=== PATIENT | female | born 1940 | race Caucasian/White ===

== ENCOUNTER 2023-01-28 16:02 | Observation (INO) | payer MEDICARE, SELFPAY ==
[2023-01-28] VITALS (12 sets, daily range): BP systolic 98–130; BP diastolic 52–81; PULSE 105–112; RESP 16–26; TEMP 36.6–37.6; O2SAT 95–98; BMI 29.0; BMI 29.5; BMI 30.4
--- NOTE | 2023-01-28 16:04 | EKG12_ITS ---
Test Reason : NEURO Blood Pressure : / mmHG Vent. Rate : 108 BPM Atrial Rate : 108 BPM P-R Int : 178 ms QRS Dur : 106 ms QT Int : 334 ms P-R-T Axes : 049 -27 073 degrees QTc Int : 447 ms Sinus tachycardia Incomplete left bundle branch block Minimal voltage criteria for LVH, may be normal variant ( Alford product ) Borderline ECG Confirmed by NEPTALI SUAREZ, TRESSA ([id number]), video effects editor CASSIDY FRAUSTO ([id number]) on 01/30/2023 8:53:31 AM Referred By: IGNACIO Confirmed By:TRESSA GUNDERSON MD
--- NOTE | 2023-01-28 16:04 | CT_ITS ---
We are attempting to reach an attending provider to discuss findings. An addendum with communication details will be sent when the communication is complete. INDICATION: Neuro deficit, acute, stroke suspected EXAMINATION: CT BRAIN WITH CONTRAST TECHNIQUE: Noncontrast axial images were obtained of the brain. Subsequently, routine carotid CT angiogram protocol was performed without and with IV contrast. In addition, images were obtained of the [place]. NASCET criteria using the distal ICAs for comparison were used for evaluation of stenoses. 3D reconstructions were reviewed. A radiation dose optimization technique was used for this scan. IV Contrast dosage and agent: 100 cc [id number] COMPARISON: None. FINDINGS: --CT BRAIN: --CTA NECK: AORTIC ARCH AND BRANCHES: Normal anatomy, patent. RIGHT CCA: No occlusion, significant stenosis or dissection. RIGHT CAROTID BULB: Mild calcifications with no hemodynamically significant stenosis. RIGHT ICA: No occlusion, significant stenosis or dissection. LEFT CCA: No occlusion, significant stenosis or dissection. LEFT CAROTID BULB: Mild calcifications with no hemodynamically significant stenosis. LEFT ICA: No occlusion, significant stenosis or dissection. RIGHT VERTEBRAL ARTERY: No occlusion, significant stenosis or dissection. LEFT VERTEBRAL ARTERY: No occlusion, significant stenosis or dissection. NECK SOFT TISSUES: Unremarkable. --CTA HEAD: --Anterior circulation: ICAs: No significant stenosis at the intracranial/visualized segments. ACAs: No significant stenosis at the visualized segments. ACOM: Present. MCAs: No significant stenosis at the visualized segments. --Posterior circulation: PCOMs: Patent on the right. Nonvisualization on the left. ripsaw operator: No significant stenosis at the visualized segments. BASILAR ARTERY: No significant stenosis. VERTEBRAL ARTERIES: No significant stenosis at the intradural/visualized segments. No evidence of intracranial aneurysm or vascular malformation. CT/STROKE CTA Head AND Neck W/Con IMPRESSION: Negative CT Brain, CTA Carotid, and CTA Brain. Electronically Signed: Robert Loving DO at 16:46 EDT ,
--- NOTE | 2023-01-28 16:04 | CT_ITS ---
We are attempting to reach an attending provider to discuss findings. An addendum with communication details will be sent when the communication is complete. INDICATION: Neuro deficit, acute, stroke suspected EXAMINATION: CT BRAIN - CT Head Stroke Protocol W/O Contrast Injection TECHNIQUE: Multiple axial images were obtained of the head without intravenous contrast. A radiation dose optimization technique was used for this scan. IV Contrast dosage and agent: None. COMPARISON: FINDINGS: BRAIN PARENCHYMA: No intra- or extra-axial hemorrhage. No evidence of acute infarct. No intracranial mass or mass effect. Bilateral microangiopathic ischemic changes of the cerebral white matter. Posterior fossa structures are unremarkable. CSF SPACES: Appropriate for age. No hydrocephalus. Basal cisterns are patent. CALVARIUM, SKULL BASE, PARANASAL SINUSES AND MASTOID AIR CELLS: Clear. No discrete lytic or blastic abnormalities. ORBITS: Both globes, extraocular muscles, optic nerves and retrobulbar fat appear unremarkable. CT/STROKE Brain/Head without Cont IMPRESSION: Age-related changes. No acute intracranial pathology. Electronically Signed: Robert Loving DO at 16:24 EDT ,
--- NOTE | 2023-01-28 16:22 | ED.VIS.STROK ---
HPI History of Present Illness Chief Complaint: Stroke Alert Informant: patient, spouse/S.O. and family Narrative Narrative: History is from patient, and daughter. Evidently at around 5:00 yesterday afternoon patient just felt overall weak tired and a little nauseated. She laid down. She did not actually vomit. There have may have been some mild speech difficulties which shortened speech is in single words. Evidently this morning she got up. She did eat breakfast and did not have vomiting. She felt weaker in the afternoon. had been outside during the day. When he came back in she stated she just did not feel well. 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 He saw the bulletin that she made and it was appropriate. But the daughter had talked to her at some point in there and she seemed to have some mild expressive aphasia. She had a little bit more difficulty than normal getting her words out. She then seemed a little bit more confused this afternoon. She had told her that she was not going to drop the bulletin off at [employer]. He then found her in the tanker driver seat of the car. He then drove her to [employer] but she had forgotten to bring the [employer] bulletin. This combination just makes him concerned. She has never had any difficulty walking although she has been walking slower than normal the last day. There has not been any leaning to one side or focal weakness. No known fevers. She did have some mild soft bowel movement but no blood. Patient has mild dementia and is on donepezil. She also has high cholesterol. She evidently had a TIA with some similar symptoms a couple years ago. Her only anticoagulation is baby aspirin [facility] Medical History Dementia TIA (transient ischemic attack) Home Medications atorvastatin 20 mg tablet 20 mg PO DAILY 01/28/23 [History Last Taken Unknown] donepezil 5 mg tablet 20 mg PO DAILY 01/28/23 [History Last Taken Unknown] omeprazole 20 mg capsule,delayed release 20 mg PO DAILY 01/28/23 [History Last Taken Unknown] Allergy/AdvReac Type Severity Reaction Status Date / Time prednisone Allergy NEEDS Verified 01/28/23 16:32 FOLLOW-UP Social History Smoking Status: Never smoker ROS ROS ED Constitutional Constitutional ED: Denies chills, fever(s) or subjective Eyes Eyes: Denies change in vision or diplopia ENT ENT ED: Denies rhinorrhea or sore throat Cardiovascular Cardiovascular: Denies chest pain, palpitations or racing heartbeat Respiratory/Chest Respiratory/Chest: Denies cough Gastrointestinal Gastrointestinal: Reports diarrhea and nausea; Denies abdominal pain or vomiting Genitourinary Genitourinary ED: Reports other Details: She has had some dysuria recently but was treated with antibiotics a few weeks ago and it sounds like symptoms generally did resolve. Musculoskeletal Musculoskeletal: Denies myalgias Integumentary Denies Abrasions or rash Neurologic Neurologic: Reports other Details: See history of present illness. No focal weakness. ; Denies headache(s), paresthesias or weakness Endocrine Endocrinology: Denies polydipsia or polyuria Hematologic/Lymphatic Hematologic/Lymphatic: Denies easy bleeding or easy bruising Allergic/Immunologic Allergic/Immunologic ED: Denies urticaria EXAM Physical Exam Narrative Exam Narrative: CONSTITUTIONAL: Patient is nontoxic in appearance. The patient looks comfortable. Work of breathing looks normal. She is pleasant. She has a sense of humor HEENT: No notable trauma. Mucous membranes moist. No sinus tenderness. No indication of pain with swallowing. EYES: No conjunctival injection. No proptosis. Range of motion is normal. Lids close and open tightly and equally. NECK:No JVD. No stridor. CARDIOVASCULAR: Mildly tachycardic rate. Regular rhythm. No notable murmur. No JVD. phototypesetting equipment monitor appears to show sinus rhythm with mild tachycardia and occasional PACs. I do not see PVCs. RESPIRATORY: No respiratory distress. Breathing is unlabored. No wheezes. No rhonchi. No rales. No pain with a deep breath. No chest wall tenderness. Saturations are normal at 97% on room air showing no hypoxia. GASTROINTESTINAL: Not distended. Bowel sounds are normal. No tenderness. No guarding. No rebound. No palpable mass. No bruit is heard. GENITOURINARY: No tenderness over the bladder. No CVA tenderness. MUSCULOSKELETAL: Atraumatic. No peripheral edema. No cord. No tenderness along the deep venous system. No asymmetry. No distended veins. NEUROLOGICAL: Patient is alert and appropriate. She does have very mild word finding difficulty on exam. She does end up getting the correct words most of the time but it takes her longer than normal and the family states that this is a clear difference from her baseline. See NIH stroke scale also SKIN: No noted rashes. No diaphoresis. PSYCHIATRIC: Patient is calm. Mood is appropriate. Const Vital Signs: 01/28/23 16:08 01/28/23 16:20 01/28/23 16:20 Temperature Temperature Source Pulse Rate 106 H 109 H Respiratory Rate 19 H 26 H Blood Pressure 130/63 H 105/66 Blood Pressure Mean 85 79 Pulse Ox 97 98 Oxygen Delivery Method Room Air Room Air Room Air 01/28/23 16:33 01/28/23 17:15 01/28/23 17:45 Temperature 98.2 F Temperature Source Temporal Pulse Rate 112 H 109 H Respiratory Rate 16 22 H Blood Pressure 115/81 H 98/66 Blood Pressure Mean 92 76 Pulse Ox 98 95 Oxygen Delivery Method Room Air Room Air 01/28/23 18:15 Temperature Temperature Source Pulse Rate 112 H Respiratory Rate 20 H Blood Pressure 111/68 Blood Pressure Mean 82 Pulse Ox 96 Oxygen Delivery Method Room Air NIHSS NIHSS Initial: 1a Level of Consciousness: 0 1b LOC Questions (Score 2 if aphasic/stupor): 0 1c LOC Commands (Only score 1st attempt): 0 2 Best Gaze (If aphasic, use reflexive mvmts.): 0 3 Visual: 0 4 Facial Palsy: 0 5 Motor Arm Right (UN = amputation/fusion): 0 5 Motor Arm Left: 0 6 Motor Leg Right: 0 6 Motor Leg Left: 0 7 Limb ataxia (Only + if out of proportion): 0 8 Sensory (Aphasia/stupor=0 or 1, coma=2): 1 9 Best Language: 0 10 Dysarthria (mute, coma=2, intubated=UN): 0 11 Extinction and Inattention (only scored if +): 0 Total Score: 1 MDM MDM MDM Narrative Medical decision making narrative: My independent interpretation the patient's CT of the head without contrast shows no bleed, obvious mass there is mild atrophy. Final reading is negative for any acute stroke when I discussed the case with radiologist on the phone. CT angiogram of the head shows no acute process CBC shows normal white count. Minimal elevation of the hemoglobin that could be some mild dehydration. Electrolytes show no marked abnormalities. There is a slight high BUN to creatinine ratio. Glucose is up a little bit at 147 but these are not likely the cause of her symptoms. PT and PTT show no marked abnormalities Troponin is normal at 14. Stroke neurologist saw this patient by telemetry neurology. She does have some mild expressive aphasia with risk factors. She is only on aspirin. He recommended admission and further work-up. We are waiting urinalysis. This will be checked. It has been in the lab for a while more not getting results. We have been having this challenge today. But the patient does not have fevers urinary symptoms or an elevated white count. I did discuss the case with hospitalist Dr. Prince and the patient will be brought in for further evaluation. Lab Data Attestation: I reviewed the patient's lab results. Labs: Laboratory Results - last 24 hr 01/28/23 01/28/23 01/28/23 16:12 16:12 16:12 WBC 6.2 RBC 5.62 H Hgb 15.2 H Hct 46.9 MCV 83.5 MCH 27.0 MCHC 32.4 RDW Std Deviation 41.6 RDW Coeff of Majo 13.6 Plt Count 123 L MPV 10.2 Immature Gran % (Auto) 0.500 Neut % (Auto) 86.3 H Lymph % (Auto) 5.1 L Alexander % (Auto) 7.4 Eos % (Auto) 0.2 Baso % (Auto) 0.5 Absolute Neuts (auto) 5.4 Absolute Lymphs (auto) 0.32 L Nucleated RBC % 0 Differential Comment SCANNED PT 14.0 INR 1.1 APTT 29.8 Sodium 133 L Potassium 4.3 Chloride 100 Carbon Dioxide 27.0 Anion Gap 6 BUN 20 H Creatinine 0.90 Estim Creat Clear Calc 38.12 Est GFR (MDRD) Af Amer 78 Est GFR (MDRD) Non-Af 64 BUN/Creatinine Ratio 22.3 H Glucose 147 H Calcium 9.4 Troponin I High Sens 14 Urine Color Urine Clarity Urine pH Ur Specific Topmost Urine Protein Urine Glucose (UA) Urine Ketones Urine Occult Blood Urine Nitrite Urine Bilirubin Urine Urobilinogen Ur Leukocyte Esterase POC Glucose 01/28/23 01/28/23 16:25 17:05 WBC RBC Hgb Hct MCV MCH MCHC RDW Std Deviation RDW Coeff of Majo Plt Count MPV Immature Gran % (Auto) Neut % (Auto) Lymph % (Auto) Alexander % (Auto) Eos % (Auto) Baso % (Auto) Absolute Neuts (auto) Absolute Lymphs (auto) Nucleated RBC % Differential Comment PT INR APTT Sodium Potassium Chloride Carbon Dioxide Anion Gap BUN Creatinine Estim Creat Clear Calc Est GFR (MDRD) Af Amer Est GFR (MDRD) Non-Af BUN/Creatinine Ratio Glucose Calcium Troponin I High Sens Urine Color Yellow Urine Clarity Sl. Cloudy Urine pH 6.0 Ur Specific Topmost 1.015 Urine Protein 100 H Urine Glucose (UA) Normal Urine Ketones 5 H Urine Occult Blood Negative Urine Nitrite Negative Urine Bilirubin Negative Urine Urobilinogen Normal Ur Leukocyte Esterase 25 H POC Glucose 145 H Radiography Diagnostic Testing: Clinical Impression(s) from Imaging Studies Brain CT 01/28/23 16:04 IMPRESSION: Age-related changes. No acute intracranial pathology. Electronically Signed: Robert Loving DO at 16:24 EDT , ADDENDUM: 01/28/23 1635 IMPRESSION: Age-related changes. No acute intracranial pathology. N.B. : The above Results were Read Back by Robert Loving DO to Seven Martinez MD, and understanding confirmed on 01/28/2023 16:28:33 (ET). Electronically Signed: Robert Loving DO at 16:24 EDT , Head/Neck CTA 01/28/23 16:04 IMPRESSION: Negative CT Brain, CTA Carotid, and CTA Brain. Electronically Signed: Robert Loving DO at 16:46 EDT , ADDENDUM: 01/28/23 1659 IMPRESSION: Negative CT Brain, CTA Carotid, and CTA Brain. N.B. : The above Results were Read Back by Robert Loving DO to Seven Martinez MD, and understanding confirmed on 01/28/2023 16:52:49 (ET). Electronically Signed: Robert Loving DO at 16:46 EDT , Chest X-Ray 01/28/23 16:41 IMPRESSION: No radiographic evidence of acute cardiopulmonary disease. Electronically Signed: Robert Loving DO at 17:02 EDT , EKG Initial EKG: Comments: My independent interpretation of the patient's EKG done as part of stroke work-up shows sinus rhythm with slightly tachycardic rate at 108. No ectopy is seen on this EKG although PACs are seen on the monitor. No acute ST elevation or depression. Partial left bundle branch block and secondary changes. VA interval, QRS duration and QTc are normal. Management Discussion w/another healthcare provider: Hospitalist Discharge Plan Triage Chief Complaint: Stroke Alert ED Provider: Seven Martinez Dx/Rx/DC Orders Clinical Impression: Expressive aphasia, History of nausea, Generalized weakness Prescriptions: No Action atorvastatin 20 mg tablet 20 mg PO DAILY donepezil 5 mg tablet 20 mg PO DAILY Label Comments: TAKE 1 TABLET BY MOUTH EVERY DAY IN THE EVENING omeprazole 20 mg capsule,delayed release(DR/EC) 20 mg PO DAILY Primary Care Provider: Elvis Burdick Referrals: Elvis Burdick MD [Primary Care Provider] - Disposition Disposition: Acute Care Hospital [facility]
[2023-01-28 16:24] LABS: Absolute Lymphocyte Count 0.32 X10^3/uL (0.83-4.51); Absolute Neutrophil Count 5.4 X10^3/uL (2.0-7.7); Basophil# 0.03 X10^3/uL; Basophil% 0.5 % (0-1); Eosinophil# 0.01 X10^3/uL; Eosinophils% 0.2 % (0-5); Hematocrit 46.9 % (37-47); Hemoglobin 15.2 g/dL (12.0-15.0); Lymphocyte # 0.32 X10^3/ul (0.83-4.51); Lymphocyte % 5.1 % (19-41); Mean Corp Hgb Conc 32.4 g/dL (32-36); Mean Corpuscular Volume 83.5 fL (81-99); Mean Platelet Vol. 10.2 fl (6.2-12.0); Monocyte# 0.46 X10^3/uL; Monocyte% 7.4 % (0-10); NRBC Flagged by Analyzer 0 % (0-5); Neutrophil # 5.39 X10^3/uL (2.7-7.7); Neutrophil % 86.3 % (47-70); POSITIVE DIFFERENTIAL YES; Platelet Count 123 K/mm3 (150-450); RBC Distribution Width CV 13.6 % (11.6-14.6); RBC Distribution Width SD 41.6 fl (35.1-43.9); Red Blood Count 5.62 M/mm3 (4.2-5.4); White Blood Count 6.2 K/mm3 (4.4-11.0)
[2023-01-28 16:30] LABS: International Normalized Ratio 1.1
[2023-01-28 16:31] LABS: Partial Thromboplast Time 29.8 Seconds (24.1-36.2)
[2023-01-28 16:37] LABS: Differential Indicated SCAN CRITERIA MET
--- NOTE | 2023-01-28 16:41 | RAD_ITS ---
INDICATION: Neuro deficit, acute, stroke suspected EXAMINATION/TECHNIQUE: X-RAY - XR Chest 1 View COMPARISON: FINDINGS: LINES/DEVICES: Sternotomy wires over the mediastinum. LUNGS: No consolidation, edema or effusion. No pneumothorax. MEDIASTINUM AND CARDIOVASCULAR STRUCTURES: Cardiac silhouette not enlarged. Central airways and mediastinal contour are unremarkable. BONES AND SOFT TISSUES: Unremarkable. RAD/Chest 1 View IMPRESSION: No radiographic evidence of acute cardiopulmonary disease. Electronically Signed: Robert Loving DO at 17:02 EDT ,
[2023-01-28 16:42] LABS: Anion Gap 6 (5-15); BUN 20 mg/dL (7-18); BUN/Creat Ratio 22.3 RATIO (10-20); Calcium,Total 9.4 mg/dL (8.5-10.1); Chloride 100 mmol/L (98-107); EST Glomerular Filtration Rate 64 mL/min (>60); Est Glom Filt Rate - Afr Amer 78 mL/min (>60); Estimated Creatinine Clearance 38.12 ml/min; Glucose 147 mg/dL (74-106); Potassium 4.3 mmol/L (3.5-5.1); Sodium Level 133 mmol/L (136-145); Troponin-I HS 14 pg/mL (3.0-54.0)
[2023-01-28 17:06] LABS: Bedside Glucose 145 mg/dL (74-106)
[2023-01-28 17:09] LABS: Differential Comment SCANNED
[2023-01-28 17:11] LABS: Bacteria 0 SEEN /hpf (None Seen); Mucous, Urine 0 SEEN /hpf (<or=2+); Red Blood Cells-Urine 0 SEEN /hpf (0-5)
[2023-01-28 18:21] LABS: Color, Urine Yellow (Yellow); Glucose, Dipstick Normal (Normal); Ketone-Dipstick 5 mg/dl (Negative); Leukocyte Esterase-Dipstick 25 /ul (Negative); Nitrite-Dipstick Negative (Negative); Occult Blood-Urine Negative /ul (Negative); Protein-Dipstick 100 mg/dl (Negative); Specific Gravity, Urine 1.015 (1.002-1.030); Urine Bilirubin Dipstick Negative (Negative); Urine Clarity Sl. Cloudy (Clear); Urine Urobilinogen Normal (Normal)
--- NOTE | 2023-01-28 18:36 | PCM.HP.STD ---
HPI - General General Date of Admission: 01/28/23 Date of Service: 01/28/23 Chief Complaint: Mild language deficit/expressive aphasia since yesterday evening. HPI Narrative ALBERTA KAUR, is a 82 F Who was brought to ED accompanied by her and daughter for chief complaint of generalized weakness and difficulty in finding words/mild language deficit. Patient has mild early dementia and therefore history mainly taken from her daughter, and patient herself. She said she had difficulty in finding words, expressing herself but cannot understand other people talking to her. She denies dysarthria. Denies any focal one-sided weakness numbness tingling, paresthesia, blurry vision or loss of vision, dysphagia or new urinary or bowel complaint. No fever. Her symptoms started about about 4 to 5 PM yesterday. Patient was also feeling wobbly and slow when she walks. She was little more confused than normal. Mild nausea. No vomiting. In ED, stroke alert was called. Patient had TIA about 2 to 3 years ago. [facility] stroke neurologist was consulted and advised full stroke work-up. Patient on atorvastatin, donezepil and omeprazole at home. In ED, CT head and CTA head and neck did not show acute abnormality. Twelve-lead EKG shows sinus tachycardia 108 bpm, LAD, QTc 441 ms, incomplete LBBB with minimal voltage criteria for LVH. Patient is further admitted. [facility] Medical History Dementia TIA (transient ischemic attack) Home Medications atorvastatin 20 mg tablet 20 mg PO DAILY 01/28/23 [History Last Taken Unknown] donepezil 5 mg tablet 20 mg PO DAILY 01/28/23 [History Last Taken Unknown] omeprazole 20 mg capsule,delayed release 20 mg PO DAILY 01/28/23 [History Last Taken Unknown] Allergy/AdvReac Type Severity Reaction Status Date / Time prednisone Allergy NEEDS Verified 01/28/23 16:32 FOLLOW-UP Social History Smoking Status: Never smoker ROS ROS Narrative 14 system ROS taken from patient, her and daughter near the bedside. Denies prior history of coronary artery disease. 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 Denies history of smoking or chronic lung disease. Rest 14 ROS completed are negative except as mentioned in HPI. Vital Signs Vital Signs Vital Signs: 01/28/23 16:08 01/28/23 16:20 01/28/23 16:20 Temperature Temperature Source Pulse Rate 106 H 109 H Respiratory Rate 19 H 26 H Blood Pressure 130/63 H 105/66 Blood Pressure Mean 85 79 Pulse Ox 97 98 Oxygen Delivery Method Room Air Room Air Room Air 01/28/23 16:33 01/28/23 17:15 01/28/23 17:45 Temperature 98.2 F Temperature Source Temporal Pulse Rate 112 H 109 H Respiratory Rate 16 22 H Blood Pressure 115/81 H 98/66 Blood Pressure Mean 92 76 Pulse Ox 98 95 Oxygen Delivery Method Room Air Room Air 01/28/23 18:15 Temperature Temperature Source Pulse Rate 112 H Respiratory Rate 20 H Blood Pressure 111/68 Blood Pressure Mean 82 Pulse Ox 96 Oxygen Delivery Method Room Air Weight Weight: 166 lb 3.657 oz Body Mass Index (BMI) 30.4 Physical Exam Narrative Physical exam General: Alert, Oriented x3, Cooperative HEENT: Atraumatic, PERRLA, EOMI, Normocephalic Oral: Oral mucosa dry. No Gingival or Mucosal Lesions/ Ulcerations Neck: Supple, No JVD, Negative Carotid Bruits Lungs: Air entry diminished in bilateral lung bases. No crepitation/rhonchi Cardiovascular: Regular rate, Regular Rhythm, Normal S1, Normal S2, open heart surgery status post bioprosthetic AVR. Mild aortic, artificial valve click Abdomen: Bowel Sounds Present, Soft, Non Tender, Non-Distended : No dysuria. Chronic urinary incontinence. No renal angle tenderness. No suprapubic tenderness. Extremities: No edema, Capillary Refill Less than 3 Seconds Skin: No rashes, No breakdown Musculoskeletal: No Tenderness to Palpation of Joints or Extremities Neurological: Cranial nerves II-XII grossly intact, DTR 2+/4. NIH 1 for mild to moderate aphasia. No dysphagia or dysarthria. Psych/Mental Status: Flat affect. Mild early dementia. Results Lab / Micro Data Result Diagrams: 01/28/23 16:12 01/28/23 16:12 Labs: Laboratory Results - last 24 hr 01/28/23 16:12: WBC 6.2, RBC 5.62 H, Hgb 15.2 H, Hct 46.9, MCV 83.5, MCH 27.0, MCHC 32.4, RDW Std Deviation 41.6, RDW Coeff of Majo 13.6, Plt Count 123 L, MPV 10.2, Immature Gran % (Auto) 0.500, Neut % (Auto) 86.3 H, Lymph % (Auto) 5.1 L, [place] % (Auto) 7.4, Eos % (Auto) 0.2, Baso % (Auto) 0.5, Absolute Neuts (auto) 5.4, Absolute Lymphs (auto) 0.32 L, Nucleated RBC % 0, Differential Comment SCANNED 01/28/23 16:12: PT 14.0, INR 1.1, APTT 29.8 01/28/23 16:12: Sodium 133 L, Potassium 4.3, Chloride 100, Carbon Dioxide 27.0, Anion Gap 6, BUN 20 H, Creatinine 0.90, Estim Creat Clear Calc 38.12, Est GFR (MDRD) Af Amer 78, Est GFR (MDRD) Non-Af 64, BUN/Creatinine Ratio 22.3 H, Glucose 147 H, Calcium 9.4, Troponin I High Sens 14 01/28/23 16:25: POC Glucose 145 H 01/28/23 17:05: Urine Color Yellow, Urine Clarity Sl. Cloudy, Urine pH 6.0, Ur Specific [place] 1.015, Urine Protein 100 H, Urine Glucose (UA) Normal, Urine Ketones 5 H, Urine Occult Blood Negative, Urine Nitrite Negative, Urine Bilirubin Negative, Urine Urobilinogen Normal, Ur Leukocyte Esterase 25 H Radiology Impression Brain CT 01/28/23 16:04 IMPRESSION: Age-related changes. No acute intracranial pathology. Electronically Signed: Robert Loving DO at 16:24 EDT Reading Location ID and State: [facility] / [place] Tel [phone], Service support , ADDENDUM: 01/28/23 1635 IMPRESSION: Age-related changes. No acute intracranial pathology. N.B. : The above Results were Read Back by Robert Loving DO to Seven Martinez MD, and understanding confirmed on 01/28/2023 16:28:33 (ET). Electronically Signed: Robert Loving DO at 16:24 EDT , Head/Neck CTA 01/28/23 16:04 IMPRESSION: Negative CT Brain, CTA Carotid, and CTA Brain. Electronically Signed: Robert Loving DO at 16:46 EDT , ADDENDUM: 01/28/23 1659 IMPRESSION: Negative CT Brain, CTA Carotid, and CTA Brain. N.B. : The above Results were Read Back by Robert Loving DO to Seven Martinez MD, and understanding confirmed on 01/28/2023 16:52:49 (ET). Electronically Signed: Robert Loving DO at 16:46 EDT , Chest X-Ray 01/28/23 16:41 IMPRESSION: No radiographic evidence of acute cardiopulmonary disease. Electronically Signed: Robert Loving DO at 17:02 EDT , Assessment & Plan Assessment/Plan (1) Expressive aphasia: (2) Generalized weakness: PLAN: Plan This is a 82-year-old female is being admitted for stroke work-up. 1. Expressive aphasia possible TIA with history of TIA: Patient is being admitted in PCU. Patient is started on baby aspirin. Atorvastatin increased to 40 mg daily. BP is in permissive hypertension range. PT, OT, speech therapy/swallow evaluation and management, nursing NIH stroke scale, BP and glucose monitoring and control as per stroke protocol. TSH, A1c and fasting lipid profile tomorrow AM. MRI brain and 2D echo with bubble contrast study ordered 2. Mild GERD symptoms and dyslipidemia: On omeprazole 20 mg daily. Rest as mentioned above. 3. Mild early dementia: Patient on donezepil 20 mg daily. VTE prophylaxis moderate to high risk: On heparin 5000 units subcutaneous 3 times daily Living will/advanced directive/end of life care: Patient does have living will or advanced directive. Her is POA present in the room. After discussion of benefits/risks procedures involved with full code, DNR CC arrest and DNR CC, the patient, her daughter and opted for full code. Patient does want artificial life support including intubation, tube feed, ventilator and/chest compression, central venous catheter, vasopressor and DC shock if needed. Total time spent in [id number] encounter in discussion of advanced directive 17 minutes. Laboratory Results 01/28/23 16:12: WBC 6.2, RBC 5.62 H, Hgb 15.2 H, Hct 46.9, MCV 83.5, MCH 27.0, MCHC 32.4, RDW Std Deviation 41.6, RDW Coeff of Majo 13.6, Plt Count 123 L, MPV 10.2, Immature Gran % (Auto) 0.500, Neut % (Auto) 86.3 H, Lymph % (Auto) 5.1 L, [place] % (Auto) 7.4, Eos % (Auto) 0.2, Baso % (Auto) 0.5, Absolute Neuts (auto) 5.4, Absolute Lymphs (auto) 0.32 L, Nucleated RBC % 0, Differential Comment SCANNED 01/28/23 16:12: PT 14.0, INR 1.1, APTT 29.8 01/28/23 16:12: Sodium 133 L, Potassium 4.3, Chloride 100, Carbon Dioxide 27.0, Anion Gap 6, BUN 20 H, Creatinine 0.90, Estim Creat Clear Calc 38.12, Est GFR (MDRD) Af Amer 78, Est GFR (MDRD) Non-Af 64, BUN/Creatinine Ratio 22.3 H, Glucose 147 H, Calcium 9.4, Troponin I High Sens 14 01/28/23 16:25: POC Glucose 145 H 01/28/23 17:05: Urine Color Yellow, Urine Clarity Sl. Cloudy, Urine pH 6.0, Ur Specific [place] 1.015, Urine Protein 100 H, Urine Glucose (UA) Normal, Urine Ketones 5 H, Urine Occult Blood Negative, Urine Nitrite Negative, Urine Bilirubin Negative, Urine Urobilinogen Normal, Ur Leukocyte Esterase 25 H, Urine RBC Pending, Urine WBC Pending, Ur Squamous Epith Cells Pending, Urine Bacteria Pending, Urine Mucus Pending Charges/Coding Visit Charges Inpatient E&M: 03471 Init Hosp L3 Procedures Hospitalists Procedures: 30827 Advncd Care Plan 30 Min
[2023-01-28 19:08] LABS: Squamous Epithelial Cells - UA 0-5 SEEN /hpf (5-10); White Blood Cells 0-5 SEEN /hpf (0-5)
--- NOTE | 2023-01-28 23:18 | ECHOD_ITS ---
Reason For Study: TIA/CVA Procedure This was a 2D Doppler, Color Flow transthoracic echocardiogram. Exam performed portable in patient room. Left Ventricle Normal LV size. Left ventricular systolic function is normal. The estimated ejection fraction is 60 %. Stage 1 diastolic dysfunction. No regional wall motion abnormalities noted. Right Ventricle Normal RV size. Normal systolic function. Atria Normal left atrium. Normal right atrium. Bubble contrast study negative for right to left interatrial shunt. Mitral Valve There is moderate mitral annular calcification. Aortic Valve Peak aortic valve gradient 35 mmHg. Mean aortic valve gradient 21 mmHg. Bioprosthetic aortic valve. Great Vessels Normal aortic root. The pulmonary artery is normal size. Normal inferior vena cava. Pericardium/Pleural No pericardial effusion. Medication Performed a rapid injection of agitated mix of 9 cc saline and 1cc air to assess for atrial septal defect. MMode/2D Measurements & Calculations LVIDd: 3.7 cm IVSd: 1.5 cm LVOT diam: 2.0 cm LVIDs: 1.9 cm LVPWd: 0.89 cm LVOT area: 3.2 cm2 FS: 49.1 % Ao root diam: 3.5 cm LAV(MOD-bp): 40.7 ml LVAd ap4: 24.4 cm2 LAV(MOD-bp) Indexed: 23.5 ml/m2 LVLd ap4: 8.0 cm LAV(MOD-sp2): 43.1 ml EDV(MOD-sp4): 62.7 ml LAV(MOD-sp4): 38.8 ml EDV(sp4-el): 63.4 ml LVAs ap4: 15.0 cm2 LVLs ap4: 6.8 cm ESV(MOD-sp4): 30.6 ml ESV(sp4-el): 27.8 ml EF(MOD-sp4): 51.3 % EF(sp4-el): 56.2 % SV(MOD-sp4): 32.1 ml SV(MOD-sp2): 29.5 ml LVAd ap2: 22.5 cm2 LVLd ap2: 8.1 cm EDV(MOD-sp2): 53.1 ml EDV(sp2-el): 52.9 ml LVAs ap2: 13.3 cm2 LVLs ap2: 7.0 cm ESV(MOD-sp2): 23.6 ml ESV(sp2-el): 21.5 ml EF(MOD-sp2): 55.6 % SV(sp4-el): 35.6 ml LA A4 area: 15.7 cm2 LA dimension(2D): 3.9 cm RA A4 area: 15.3 cm2 Doppler Measurements & Calculations MV E max olive: 86.1 cm/sec MV V2 max: 154.4 cm/sec MV P1/2t max olive: 108.0 cm/sec MV A max olive: 165.8 cm/sec MV max P.5 mmHg MV P1/2t: 94.2 msec MV E/A: 0.52 MV V2 mean: 94.9 cm/sec MV dec slope: 336.0 cm/sec2 MV mean P.9 mmHg MV V2 VTI: 33.4 cm MVA(P1/2t): 2.3 cm2 MVA(VTI): 3.1 cm2 Ao V2 max: 293.9 cm/sec LV V1 max: 168.6 cm/sec SV(LVOT): 104.3 ml Ao max P.8 mmHg LV V1 max P.4 mmHg Ao V2 mean: 218.3 cm/sec LV V1 mean P.9 mmHg Ao mean P.1 mmHg LV V1 mean: 123.2 cm/sec Ao V2 VTI: 56.7 cm LV V1 VTI: 32.5 cm AV (velocity ratio): 0.57 SUSAN(I,D): 1.8 cm2 SUSAN(V,D): 1.8 cm2 PA V2 max: 78.6 cm/sec ECHO/Echo Complete Interpretation Summary Normal LV size. Left ventricular systolic function is normal. The estimated ejection fraction is 60 %. Stage 1 diastolic dysfunction. Bioprosthetic aortic valve. Mean aortic valve gradient 21 mmHg. Bubble contrast study negative for right to left interatrial shunt. Ordering Physician: Bhaskar Prince Referring Physician: Elvis Burdick Performed By: Cece Kay RCS
--- NOTE | 2023-01-28 23:18 | MRI_ITS ---
STUDY: MR Brain W/O Contrast 01/29/2023 4:29 PM REASON FOR EXAM: Female, 82 years old. acute stroke COMPARISON: CT head done yesterday TECHNIQUE: Standardized multiplanar fat and water weighted pulse sequences were obtained. MR Brain W/O Contrast FINDINGS: There is mild cerebral atrophy with widening of the extra-axial spaces and ventricular dilatation. There are a limited number of small white matter hyperintensities, distributed throughout the deep white matter tracts of the cerebral hemispheres, consistent with mild chronic white matter ischemic changes. There is mild prominence of the vermian folia, consistent with atrophy of the vermis. The cerebellar hemispheres are normal. Normal bilateral basal ganglia. Normal thalami. There is no extra-axial fluid accumulation. Normal flow voids within the major intracranial circulation suggesting patency by spin echo criteria. Normal sella turcica, pituitary gland, infundibular stalk, optic chiasm and hypothalamus. Normal tectal plate and pineal gland. Normal midbrain, anant and medulla. Normal basal cisterns. Normal bilateral temporal bones. Normal bilateral internal auditory canals. No demonstrated orbital abnormality, within the constraints of a routine brain study. Normal visualized paranasal sinuses. Normal calvarium and skull base. Normal visualized soft tissue structures. Normal visualized upper cervical spine. Aspect score 10 MRI/Brain without Contrast IMPRESSION: (NOT LISTED IN ORDER OF SIGNIFICANCE) There are no acute intracranial findings. Electronically Signed: Tree Hamilton MD at 16:31 EDT ,
[2023-01-29] VITALS (9 sets, daily range): BP systolic 105–130; BP diastolic 54–76; PULSE 95–115; RESP 16–18; TEMP 35.9–36.7; O2SAT 94–99; BMI 29.0
[2023-01-29] MEDS: Atorvastatin Calcium 40 MG Tablet PO ×2 (00:12→21:46)
[2023-01-29] MEDS: 0.9% Normal Saline 1,000 ML 75 ML IV (00:12)
[2023-01-29] MEDS: Pantoprazole Sodium 20 MG Tablet PO ×2 (00:12→09:51)
[2023-01-29] MEDS: Heparin Injection (Vial) 5,000 UNIT/ML VIAL 5000 UNIT SC ×4 (00:13→21:46)
[2023-01-29] MEDS: Aspirin 81 MG TAB.CHEW PO ×2 (00:13→08:12)
[2023-01-29 07:16] LABS: Absolute Neutrophil Count 5.6 X10^3/uL (2.0-7.7); Basophil# 0.02 X10^3/uL; Basophil% 0.3 % (0-1); Hematocrit 44.2 % (37-47); Lymphocyte % 4.7 % (19-41); Mean Corp Hgb Conc 31.7 g/dL (32-36); Mean Corpuscular Hgb 26.6 pg (27.0-32.0); Mean Platelet Vol. 10.6 fl (6.2-12.0); Monocyte# 0.38 X10^3/uL; NRBC Flagged by Analyzer 0 % (0-5); Neutrophil % 88.4 % (47-70); POSITIVE DIFFERENTIAL YES; Platelet Count 110 K/mm3 (150-450); RBC Distribution Width CV 13.6 % (11.6-14.6); RBC Distribution Width SD 42.1 fl (35.1-43.9); Red Blood Count 5.26 M/mm3 (4.2-5.4); White Blood Count 6.3 K/mm3 (4.4-11.0)
[2023-01-29 07:18] LABS: Differential Indicated SCAN CRITERIA MET
[2023-01-29 08:15] LABS: Anion Gap 7 (5-15); BUN 21 mg/dL (7-18); BUN/Creat Ratio 25.2 RATIO (10-20); Calcium,Total 8.6 mg/dL (8.5-10.1); Chloride 102 mmol/L (98-107); Cholesterol 118 mg/dL (200); Creatinine, Serum 0.83 mg/dL (0.55-1.02); EST Glomerular Filtration Rate 70 mL/min (>60); Est Glom Filt Rate - Afr Amer 84 mL/min (>60); Estimated Creatinine Clearance 41.33 ml/min; Glucose 143 mg/dL (74-106); High Density Lipoprotein 41 mg/dL; Sodium Level 135 mmol/L (136-145); Thyroid Stim Hormone (TSH) 1.16 uIU/mL (0.358-3.74); Triglycerides 110 mg/dL; Very Low Density Lipoprotein 22 mg/dL (5-40)
[2023-01-29 08:51] LABS: Hemoglobin A1c 6.3 % (3.8-5.6)
[2023-01-29] MEDS: Donepezil HCl 10 MG Tablet 20 MG PO (09:51)
[2023-01-29] MEDS: proCHLORPERazine 10 MG/2 ML Vial 5 MG IV (11:56)
[2023-01-29 12:10] LABS: Bedside Glucose 168 mg/dL (74-106)
[2023-01-29 13:10] LABS: Bedside Glucose 180 mg/dL (74-106)
--- NOTE | 2023-01-29 14:44 | PCM.PN.HOSP ---
Reason for Visit Reason for Visit: Diagnoses Aphasia (01/28/23) Weakness (01/28/23) Subjective Subjective Beginning to feel better overall, balance problems are improving, family members at bedside and patient family member still feels she is not talking quite the same as baseline and unable to speak as quickly though improved from previously not presently slurring Objective Data Objective Data Vital Signs: Vital Signs Temp Pulse Resp BP Pulse Ox O2 Del Method 97.6 F L 102 H 18 125/58 H 94 Room Air 01/29/23 12:00 01/29/23 12:00 01/29/23 12:00 01/29/23 12:00 01/29/23 12:00 01/29/23 12:00 Oxygen Delivery Method Room Air Weight: 72.121 kg Body Mass Index (BMI) 29.0 Intake & Output: Intake and Output for Last 24 Hours 01/27/23 01/28/23 01/29/23 23:59 23:59 23:59 Intake Total 60 / 60 Output Total 0 / 0 Balance 60 / 60 Lab / Micro Data Result Diagrams: 01/29/23 06:30 01/29/23 06:30 Labs: Laboratory Results - last 24 hr 01/28/23 16:12: WBC 6.2, RBC 5.62 H, Hgb 15.2 H, Hct 46.9, MCV 83.5, MCH 27.0, MCHC 32.4, RDW Std Deviation 41.6, RDW Coeff of Majo 13.6, Plt Count 123 L, MPV 10.2, Immature Gran % (Auto) 0.500, Neut % (Auto) 86.3 H, Lymph % (Auto) 5.1 L, [place] % (Auto) 7.4, Eos % (Auto) 0.2, Baso % (Auto) 0.5, Absolute Neuts (auto) 5.4, Absolute Lymphs (auto) 0.32 L, Nucleated RBC % 0, Differential Comment SCANNED 01/28/23 16:12: PT 14.0, INR 1.1, APTT 29.8 01/28/23 16:12: Sodium 133 L, Potassium 4.3, Chloride 100, Carbon Dioxide 27.0, Anion Gap 6, BUN 20 H, Creatinine 0.90, Estim Creat Clear Calc 38.12, Est GFR (MDRD) Af Amer 78, Est GFR (MDRD) Non-Af 64, BUN/Creatinine Ratio 22.3 H, Glucose 147 H, Calcium 9.4, Troponin I High Sens 14 01/28/23 16:12: Magnesium 2.0 01/28/23 16:25: POC Glucose 145 H 01/28/23 17:05: Urine Color Yellow, Urine Clarity Sl. Cloudy, Urine pH 6.0, Ur Specific [place] 1.015, Urine Protein 100 H, Urine Glucose (UA) Normal, Urine Ketones 5 H, Urine Occult Blood Negative, Urine Nitrite Negative, Urine Bilirubin Negative, Urine Urobilinogen Normal, Ur Leukocyte Esterase 25 H, Urine RBC 0 SEEN, Urine WBC 0-5 SEEN, Ur Squamous Epith Cells 0-5 SEEN, Urine Bacteria 0 SEEN, Urine Mucus 0 SEEN 01/29/23 06:30: Sodium 135 L, Potassium 4.0, Chloride 102, Carbon Dioxide 26.0, Anion Gap 7, BUN 21 H, Creatinine 0.83, Estim Creat Clear Calc 41.33, Est GFR (MDRD) Af Amer 84, Est GFR (MDRD) Non-Af 70, BUN/Creatinine Ratio 25.2 H, Glucose 143 H, Calcium 8.6, Triglycerides 110, Cholesterol 118, LDL Cholesterol 55, VLDL Cholesterol 22, HDL Cholesterol 41, TSH 1.16 01/29/23 06:30: WBC 6.3, RBC 5.26, Hgb 14.0, Hct 44.2, MCV 84.0, MCH 26.6 L, MCHC 31.7 L, RDW Std Deviation 42.1, RDW Coeff of Majo 13.6, Plt Count 110 L, MPV 10.6, Immature Gran % (Auto) 0.600, Neut % (Auto) 88.4 H, Lymph % (Auto) 4.7 L, [place] % (Auto) 6.0, Eos % (Auto) 0.0, Baso % (Auto) 0.3, Absolute Neuts (auto) 5.6, Absolute Lymphs (auto) 0.30 L, Nucleated RBC % 0 01/29/23 06:30: Hemoglobin A1c 6.3 H 01/29/23 08:17: POC Glucose 168 H 01/29/23 12:49: POC Glucose 180 H Micro: Microbiology 01/28/23 17:05 Urine, Clean Catch Urine Culture - Preliminary Mixed Gram Positive Organisms Radiography Diagnostic Testing: Radiology Impression Brain CT 01/28/23 16:04 IMPRESSION: Age-related changes. No acute intracranial pathology. Electronically Signed: Robert Loving DO at 16:24 EDT , ADDENDUM: 01/28/23 1635 IMPRESSION: Age-related changes. No acute intracranial pathology. N.B. : The above Results were Read Back by Robert Loving DO to Seven Martinez MD, and understanding confirmed on 01/28/2023 16:28:33 (ET). Electronically Signed: Robert Loving DO at 16:24 EDT , Head/Neck CTA 01/28/23 16:04 IMPRESSION: Negative CT Brain, CTA Carotid, and CTA Brain. Electronically Signed: Robert Loving DO at 16:46 EDT , ADDENDUM: 01/28/23 1659 IMPRESSION: Negative CT Brain, CTA Carotid, and CTA Brain. N.B. : The above Results were Read Back by Robert Loving DO to Seven Martinez MD, and understanding confirmed on 01/28/2023 16:52:49 (ET). Electronically Signed: Robert Loving DO at 16:46 EDT , Chest X-Ray 01/28/23 16:41 IMPRESSION: No radiographic evidence of acute cardiopulmonary disease. Electronically Signed: Robert oLving DO at 17:02 EDT , Physical Exam Narrative General: Alert, oriented, no apparent distress HEENT: Atraumatic, normocephalic Eyes: Anicteric, normal conjunctiva, extraocular movements intact, pupils equal Neck: Supple Respiratory: Clear to auscultation bilaterally, normal respiratory effort Cardiovascular: Regular rate and rhythm GI: Soft, nontender, nondistended Extremities: No edema Musculoskeletal: Strength 5 out of 5 in right upper extremity, 5 out of 5 left upper extremity, 5 out of 5 right lower extremity, 5 out of 5 left lower extremity Neuro: No overt focal neurological deficits, cranial nerves II through XII intact, Skin: No rashes appreciated Psych: Cooperative Assessment & Plan Assessment/Plan (1) Expressive aphasia: (2) Generalized weakness: PLAN: Plan This is a 82-year-old female is being admitted for stroke work-up. #Expressive aphasia and vertigo -On aspirin, statin -CT head no acute changes, CTA no critical stenosis -MRI no acute stroke -Official echo pending -Balance/dizziness improved this a.m. per patient, not slurring speech but she and family do not feel she is yet back to baseline, with negative MRI unclear etiology, will consult neurology -On telemetry noted sinus arrhythmia but no overt A-fib # Mild GERD symptoms and dyslipidemia: Continue daily PPI #Mild early dementia: Patient listed is on omeprazole 20 mg daily however that is over the maximum recommended dose,. She is feeling 10 mg daily not 20, will decrease this VTE prophylaxis moderate to high risk: On heparin 5000 units subcutaneous 3 times daily Charges/Coding Visit Charges Inpatient E&M: 74658 Subs Hosp L2
--- NOTE | 2023-01-29 15:58 | CASEMGMT ---
TONY CM in to complete HERNANDEZ form with patient. RN TARA explained HERNANDEZ form to patient, patient voiced understanding. Patient signed HERNANDEZ form and filed in chart. Patient provided with copy of signed HERNANDEZ Form. Patient had no further questions or concerns at this time.
[2023-01-29] MEDS: Metoprolol Tartrate 25 MG Tablet 12.5 MG PO (21:46)
[2023-01-30] VITALS (9 sets, daily range): BP systolic 103–123; BP diastolic 64–68; PULSE 88–110; RESP 16–18; TEMP 36.5–38.1; O2SAT 94–98; BMI 29.0
[2023-01-30 05:35] LABS: Absolute Lymphocyte Count 0.32 X10^3/uL (0.83-4.51); Absolute Neutrophil Count 5.2 X10^3/uL (2.0-7.7); Basophil# 0.02 X10^3/uL; Basophil% 0.3 % (0-1); Hematocrit 41.1 % (37-47); Hemoglobin 13.3 g/dL (12.0-15.0); Lymphocyte # 0.32 X10^3/ul (0.83-4.51); Lymphocyte % 5.5 % (19-41); Mean Corp Hgb Conc 32.4 g/dL (32-36); Mean Corpuscular Hgb 26.7 pg (27.0-32.0); Mean Corpuscular Volume 82.4 fL (81-99); Mean Platelet Vol. 10.7 fl (6.2-12.0); Monocyte# 0.35 X10^3/uL; NRBC Flagged by Analyzer 0 % (0-5); Neutrophil # 5.15 X10^3/uL (2.7-7.7); Neutrophil % 87.9 % (47-70); POSITIVE DIFFERENTIAL YES; Platelet Count 117 K/mm3 (150-450); RBC Distribution Width CV 13.4 % (11.6-14.6); RBC Distribution Width SD 40.2 fl (35.1-43.9); Red Blood Count 4.99 M/mm3 (4.2-5.4); White Blood Count 5.9 K/mm3 (4.4-11.0)
[2023-01-30 05:39] LABS: Differential Indicated SCAN CRITERIA MET
[2023-01-30] MEDS: Heparin Injection (Vial) 5,000 UNIT/ML VIAL 5000 UNIT SC ×3 (05:56→21:09)
[2023-01-30 06:08] LABS: Differential Comment SCANNED
[2023-01-30 06:09] LABS: Anion Gap 7 (5-15); BUN 24 mg/dL (7-18); BUN/Creat Ratio 30.2 RATIO (10-20); Calcium,Total 8.7 mg/dL (8.5-10.1); Chloride 103 mmol/L (98-107); EST Glomerular Filtration Rate 74 mL/min (>60); Est Glom Filt Rate - Afr Amer 89 mL/min (>60); Estimated Creatinine Clearance 42.88 ml/min; Glucose 143 mg/dL (74-106); Potassium 3.6 mmol/L (3.5-5.1); Sodium Level 133 mmol/L (136-145)
[2023-01-30] MEDS: Pantoprazole Sodium 20 MG Tablet PO (08:23)
[2023-01-30] MEDS: Aspirin 81 MG TAB.CHEW PO (08:23)
[2023-01-30] MEDS: Donepezil HCl 10 MG Tablet PO (08:23)
[2023-01-30] MEDS: Acetaminophen 325 MG Tablet 650 MG PO (08:23)
[2023-01-30] MEDS: Metoprolol Tartrate 25 MG Tablet 12.5 MG PO ×2 (08:24→21:08)
[2023-01-30] MEDS: Clopidogrel Bisulfate 75 MG Tablet PO (08:24)
[2023-01-30 11:44] LABS: AST(SGOT) 84 U/L (15-37); Alanine Aminotransfer ALT/SGPT 75 U/L (13-56); Albumin, Serum 2.6 g/dL (3.2-5.0); Alkaline Phosphatase 117 U/L (45-117); Bilirubin, Direct 0.81 mg/dL (0.00-0.30); Globulin 3.6 g/dL (2.2-4.2); Protein, Total 6.2 g/dL (6.4-8.2)
[2023-01-30 11:45] LABS: Erythrocyte Sedimentation Rate 38 mm/hr (0-30)
[2023-01-30 11:56] LABS: Procalcitonin 0.45 ng/mL (0.00-0.09)
--- NOTE | 2023-01-30 13:29 | PN.HOSP_ITS ---
Reason for Visit Reason for Visit: Diagnoses Aphasia (01/28/23) Weakness (01/28/23) Subjective Subjective Patient this a.m. reports feeling well tired but overall feeling better and had no focal complaints. She did however have a temp of 100 point 5 in the morning and was complaining of some nausea and diarrhea. Reports some lower neck pain from lying in the bed and not having what she does at home to help with her muscle pain and earlier had some vague upset stomach and has had several episodes of diarrhea but did not voice any other complaints and denied any urinary complaints Objective Data Objective Data Vital Signs: Vital Signs Temp Pulse Resp BP Pulse Ox O2 Del Method 100.5 F H 105 H 16 110/68 94 Room Air 01/30/23 08:09 01/30/23 08:24 01/30/23 08:09 01/30/23 08:24 01/30/23 08:09 01/30/23 08:09 Oxygen Delivery Method Room Air Weight: 72.121 kg Body Mass Index (BMI) 29.0 Intake & Output: Intake and Output for Last 24 Hours 01/28/23 01/29/23 01/30/23 23:59 23:59 23:59 Intake Total 1060 / 1060 0 / 0 Output Total 0 / 0 0 / 0 Balance 1060 / 1060 0 / 0 Lab / Micro Data Result Diagrams: 01/30/23 05:17 01/30/23 05:17 Labs: Laboratory Results - last 24 hr 01/30/23 05:17: WBC 5.9, RBC 4.99, Hgb 13.3, Hct 41.1, MCV 82.4, MCH 26.7 L, MCHC 32.4, RDW Std Deviation 40.2, RDW Coeff of Majo 13.4, Plt Count 117 L, MPV 10.7, Immature Gran % (Auto) 0.300, Neut % (Auto) 87.9 H, Lymph % (Auto) 5.5 L, Mccone % (Auto) 6.0, Eos % (Auto) 0.0, Baso % (Auto) 0.3, Absolute Neuts (auto) 5.2, Absolute Lymphs (auto) 0.32 L, Nucleated RBC % 0, Differential Comment SCANNED 01/30/23 05:17: Sodium 133 L, Potassium 3.6, Chloride 103, Carbon Dioxide 23.0, Anion Gap 7, BUN 24 H, Creatinine 0.80, Estim Creat Clear Calc 42.88, Est GFR (MDRD) Af Amer 89, Est GFR (MDRD) Non-Af 74, BUN/Creatinine Ratio 30.2 H, Glucose 143 H, Calcium 8.7 01/30/23 05:17: ESR 38 H 01/30/23 05:17: Total Bilirubin 2.50 H, Direct Bilirubin 0.81 H, AST 84 H, ALT 75 H, Alkaline Phosphatase 117, C-React Prot Ext Range 138.00 H, Total Protein 6.2 L, Albumin 2.6 L, Globulin 3.6 01/30/23 05:17: Procalcitonin 0.45 H Micro: Microbiology 01/28/23 17:05 Urine, Clean Catch Urine Culture - Final Mixed Gram Positive Organisms Radiography Diagnostic Testing: Radiology Impression Brain MRI 01/28/23 23:18 IMPRESSION: (NOT LISTED IN ORDER OF SIGNIFICANCE) There are no acute intracranial findings. Electronically Signed: Tree Hamilton MD at 16:31 EDT Reading Location ID and State: [facility] / [place] , Service support , Echocardiogram 01/28/23 23:18 Interpretation Summary Normal LV size. Left ventricular systolic function is normal. The estimated ejection fraction is 60 %. Stage 1 diastolic dysfunction. Bioprosthetic aortic valve. Mean aortic valve gradient 21 mmHg. Bubble contrast study negative for right to left interatrial shunt. Ordering Physician: Bhaskar Prince Referring Physician: Elvis Burdick Performed By: Cece Kay RCS Physical Exam Narrative General: Alert, oriented, does appear slightly more tired on recheck in the afternoon HEENT: Atraumatic, normocephalic, has red appearance on cheeks Eyes: Anicteric, normal conjunctiva, extraocular movements intact, pupils equal Neck: Supple Respiratory: Clear to auscultation bilaterally, normal respiratory effort Cardiovascular: Sinus arrhythmia on telemetry GI: Soft, nontender, nondistended Extremities: No edema Musculoskeletal: No significant tenderness on palpation of neck, able to touch chin to chest without any increase in pain Neuro: No overt focal neurological deficits, cranial nerves II through XII intact Skin: Some redness on cheeks Psych: Cooperative Assessment & Plan Assessment/Plan (1) Expressive aphasia: (2) Generalized weakness: PLAN: Plan #Fever and diarrhea -Temp 100.5 earlier today which went away with Tylenol -Has some general malaise and the several episodes of diarrhea and per daughter had some stomach upset earlier -Panculture -We will give fluids -Was also becoming mildly tachycardic earlier and given elevated CRP and ESR and Pro-Tommy will start empiric antibiotics -Stool studies negative, COVID-negative but additional viral respiratory panel pending -Did have increase in bili and LFTs with normal alk phos, will obtain right uppe r quadrant -Patient failed observation status will be converted to inpatient given the above due to acute illness with need for IV antibiotics and acute worsening #Expressive aphasia and vertigo-TIA -On aspirin, statin -CT head no acute changes, CTA no critical stenosis -MRI no acute stroke -Official echo pending -Balance/dizziness improved this a.m. per patient, not slurring speech but she and family do not feel she is yet back to baseline, with negative MRI unclear etiology, will consult neurology -On telemetry noted sinus arrhythmia but no overt A-fib -01/30: Echo resulted with EF of 60% and bubble study negative for [id number] shunt. Did show stage I diastolic dysfunction. Spoke with neurology who evaluated, they felt it was TIA and recommended adding Plavix for 21 days and then discontinuing aspirin and continuing only Plavix as well as neuro outpatient and Holter and DC #Heart failure with preserved ejection fraction -Unable to tell if acute or chronic due to no echocardiograms in our system -Stage I diastolic dysfunction noted 01/29/2023 -Does not appear to be fluid overloaded and do not feel she needs diuretics at this time -BP and risk factor management #Mild GERD symptoms and dyslipidemia: Continue daily PPI #Mild early dementia: Patient listed is on donepazil 20 mg daily however that is over the maximum recommended dose, upon external review she is taking 10 mg, changed to 10 mg VTE prophylaxis moderate to high risk: On heparin 5000 units subcutaneous 3 ti mes daily Charges/Coding Visit Charges Inpatient E&M: 96378 Subs Hosp L2
[2023-01-30] MEDS: Calcium Carbonate 500 MG Tablet 1000 MG PO (13:45)
[2023-01-30 16:01] LABS: Bacteria 0 SEEN /hpf (None Seen)
[2023-01-30 16:06] LABS: Color, Urine Amber (Yellow); Glucose, Dipstick Normal (Normal); Ketone-Dipstick 5 mg/dl (Negative); Leukocyte Esterase-Dipstick 25 /ul (Negative); Nitrite-Dipstick Negative (Negative); Occult Blood-Urine 10 /ul (Negative); Protein-Dipstick 100 mg/dl (Negative); Urine Clarity Clear (Clear); Urine Urobilinogen 1 mg/dl (Normal)
[2023-01-30 16:19] LABS: Urine Bilirubin Dipstick 1 mg/dL (Negative)
[2023-01-30 16:21] LABS: Red Blood Cells-Urine 0-5 SEEN /hpf (0-5); Squamous Epithelial Cells - UA 5-10 SEEN /hpf (5-10); White Blood Cells 0-5 SEEN /hpf (0-5)
[2023-01-30 16:22] LABS: Mucous, Urine 4+ /hpf (<or=2+)
[2023-01-30] MEDS: 0.9% Normal Saline 1,000 ML 75 ML IV (18:55)
[2023-01-30] MEDS: Atorvastatin Calcium 40 MG Tablet PO (21:09)
[2023-01-31] VITALS (12 sets, daily range): BP systolic 88–116; BP diastolic 53–66; PULSE 63–102; RESP 16–18; TEMP 36.4–37.2; O2SAT 93–100; BMI 29.0
--- NOTE | 2023-01-31 05:00 | US_ITS ---
INDICATION: Fever, elevated bilirubin and liver function tests. EXAMINATION: Ultrasound Abdomen Limited (quadrant) TECHNIQUE: Maria scale and color doppler imaging was performed of the right upper quadrant. COMPARISON: None. FINDINGS: LIVER: There is diffusely increased in echotexture. No focal hepatic lesion. Right lobe measures 19.9 cm, enlarged. Normal flow within the main portal vein. GALLBLADDER AND BILIARY TREE: Cholecystectomy. Common bile duct measures approximately 4 mm. PANCREAS: No focal abnormality is demonstrated in the pancreas. No pancreatic ductal dilatation. RIGHT KIDNEY: 11.3 cm. No hydronephrosis. Normal echogenicity. No significant ascites. Visualized aorta is normal in caliber. IVC is patent. US/Liver IMPRESSION: Hepatomegaly and steatosis. Electronically Signed: Milton Tijerina MD at 17:09 EDT ,
[2023-01-31] MEDS: Heparin Injection (Vial) 5,000 UNIT/ML VIAL 5000 UNIT SC ×3 (05:02→21:45)
[2023-01-31 06:26] LABS: Absolute Lymphocyte Count 0.75 X10^3/uL (0.83-4.51); Absolute Neutrophil Count 6.7 X10^3/uL (2.0-7.7); Basophil# 0.03 X10^3/uL; Basophil% 0.4 % (0-1); Hematocrit 38.5 % (37-47); Hemoglobin 12.5 g/dL (12.0-15.0); Lymphocyte # 0.75 X10^3/ul (0.83-4.51); Lymphocyte % 9.3 % (19-41); Mean Corp Hgb Conc 32.5 g/dL (32-36); Mean Corpuscular Hgb 26.8 pg (27.0-32.0); Mean Corpuscular Volume 82.6 fL (81-99); Mean Platelet Vol. 11.7 fl (6.2-12.0); Monocyte# 0.58 X10^3/uL; Monocyte% 7.2 % (0-10); NRBC Flagged by Analyzer 0 % (0-5); Neutrophil % 82.7 % (47-70); Platelet Count 120 K/mm3 (150-450); RBC Distribution Width CV 13.7 % (11.6-14.6); RBC Distribution Width SD 41.1 fl (35.1-43.9); Red Blood Count 4.66 M/mm3 (4.2-5.4); White Blood Count 8.1 K/mm3 (4.4-11.0)
[2023-01-31 07:12] LABS: ALB/GLOB Ratio 0.7 RATIO (0.9-2.4); AST(SGOT) 84 U/L (15-37); Alanine Aminotransfer ALT/SGPT 68 U/L (13-56); Albumin, Serum 2.4 g/dL (3.2-5.0); Alkaline Phosphatase 111 U/L (45-117); Anion Gap 6 (5-15); BUN 22 mg/dL (7-18); Calcium,Total 8.6 mg/dL (8.5-10.1); Chloride 105 mmol/L (98-107); Creatinine, Serum 0.76 mg/dL (0.55-1.02); EST Glomerular Filtration Rate 78 mL/min (>60); Est Glom Filt Rate - Afr Amer 94 mL/min (>60); Ferritin 1596 ng/mL (8-252); Globulin 3.5 g/dL (2.2-4.2); Glucose 140 mg/dL (74-106); Iron 18 ug/dL (50-170); Iron Binding Capacity,Total 168 ug/dL (250-450); PERCENT IRON SATURATION 10.7 % (15.0-55.0); Potassium 3.3 mmol/L (3.5-5.1); Protein, Total 5.9 g/dL (6.4-8.2); Sodium Level 135 mmol/L (136-145)
[2023-01-31 07:40] LABS: Erythrocyte Sedimentation Rate 37 mm/hr (0-30)
--- NOTE | 2023-01-31 08:41 | MRI_ITS ---
INDICATION: Stroke symptoms. Neck and back pain. EXAMINATION: MR Spine Cervical and MRI Spine Thoracic WO/W Contrast TECHNIQUE: Multiplanar and multisequence MR images of the cervical spine and thoracic were performed. IV Contrast Dosage and Agent: 14 mL Clariscan. COMPARISON: MRI brain January 29, 2023. CTA had and neck exam January 28, 2023. FINDINGS: VERTEBRAE: Small degree of inferior endplate marrow edema and height loss at T6, with associated enhancement. Small, chronic superior endplate compression deformity at T3. Mild, chronic anterior wedging deformity of T5. Large superior endplate Schmorl''s node versus small chronic compression deformity at T11. Multilevel thoracic Schmorl''s on endplate changes. Normal cervical vertebral body height. No other abnormal vertebral body enhancement. VERTEBRAL ALIGNMENT: Normal craniocervical junction and cervicothoracic junction. Grade 1 anterolisthesis of C4 upon C5. Grade 1 retrolisthesis of C5 upon C6. Remaining cervical alignment is normal. There is normal thoracic alignment and normal kyphosis. Note is made of median sternotomy wires. SPINAL CORD: Normal morphology and signal intensity. Conus terminates normally at L1. No abnormal spinal cord enhancement. SOFT TISSUES: No prevertebral soft tissue swelling. Ectasia of the ascending aorta, approximately 3.5 cm. Tortuosity of the descending thoracic aorta. Visualized lungs are clear. Mild cardiomegaly. AXIAL IMAGES: CERVICAL: C2-3: Unremarkable. C3-4: Small central protrusion. Uncovertebral osteophyte formation. Bilateral facet arthropathy and ligamentum flavum thickening. There is mild ventral cord flattening and mild spinal canal stenosis. Moderate to severe right and mild left foraminal narrowing. Right C4 nerve root impingement. C4-5: Broad central protrusion. Mild ventral cord flattening. Bilateral facet arthropathy and ligamentum flavum thickening. There is mild ventral and dorsolateral cord flattening. Mild bordering on moderate spinal canal stenosis. Moderate to severe right and moderate left foraminal narrowing. Right greater than left C5 nerve root impingement. C5-6: Broad protrusion associated with retrolisthesis. Ventral cord flattening and moderate spinal canal compromise. Severe bilateral foraminal narrowing with C6 nerve root impingement. C6-7: Broad central protrusion without cord flattening. There is mild spinal canal or left foraminal narrowing. C7-T1: No disc protrusion. Fusion of the right facets and left facet arthropathy. No spinal canal or foraminal stenosis. THORACIC: T5-6: Small right central disc protrusion. No significant spinal canal or foraminal stenosis. T6-7: Left central disc protrusion with mild left ventral cord flattening. No spinal canal or foraminal stenosis. T7-8: Central-right central disc protrusion. No spinal canal or foraminal stenosis. Remaining thoracic axial levels without significant disc protrusion, spinal canal or foraminal narrowing. MRI/Spine Cervical W/WO Contrast IMPRESSION: Acute Schmorl''s node versus small acute inferior endplate compression fracture at T6. Few chronic thoracic compression deformities. Cervical and thoracic spondylosis changes. Surgical evaluation recommended. Electronically Signed: Milton Tijerina MD at 21:01 EDT ,
--- NOTE | 2023-01-31 08:41 | PCM.PN.HOSP ---
Reason for Visit Reason for Visit: Diagnoses Aphasia (01/30/23) Weakness (01/30/23) Subjective Subjective Endorses feeling roughly the same today, possibly slightly better. Denies having diarrhea overnight or feeling nauseous. Objective Data Objective Data Vital Signs: Vital Signs Temp Pulse Resp BP Pulse Ox O2 Del Method 98.9 F 102 H 16 116/62 97 Room Air 01/31/23 05:15 01/31/23 05:15 01/31/23 05:15 01/31/23 05:15 01/31/23 05:15 01/31/23 05:15 Oxygen Delivery Method Room Air Weight: 72.121 kg Body Mass Index (BMI) 29.0 Intake & Output: Intake and Output for Last 24 Hours 01/29/23 01/30/23 01/31/23 23:59 23:59 23:59 Intake Total 1060 / 1060 1153.75 / 1153.75 50 / 50 Output Total 0 / 0 0 / 0 Balance 1060 / 1060 1153.75 / 1153.75 50 / 50 Lab / Micro Data Result Diagrams: 01/31/23 06:00 01/31/23 06:00 Labs: Laboratory Results - last 24 hr 01/30/23 05:17: ESR 38 H 01/30/23 05:17: Total Bilirubin 2.50 H, Direct Bilirubin 0.81 H, AST 84 H, ALT 75 H, Alkaline Phosphatase 117, C-React Prot Ext Range 138.00 H, Total Protein 6.2 L, Albumin 2.6 L, Globulin 3.6 01/30/23 05:17: Procalcitonin 0.45 H 01/30/23 15:46: Urine Color Destiny, Urine Clarity Clear, Urine pH 6.0, Ur Specific [place] 1.020, Urine Protein 100 H, Urine Glucose (UA) Normal, Urine Ketones 5 H, Urine Occult Blood 10 H, Urine Nitrite Negative, Urine Bilirubin 1 H, Urine Urobilinogen 1 H, Ur Leukocyte Esterase 25 H, Urine RBC 0-5 SEEN, Urine WBC 0-5 SEEN, Ur Squamous Epith Cells 5-10 SEEN, Urine Bacteria 0 SEEN, Urine Mucus 4+ 01/31/23 06:00: WBC 8.1, RBC 4.66, Hgb 12.5, Hct 38.5, MCV 82.6, MCH 26.8 L, MCHC 32.5, RDW Std Deviation 41.1, RDW Coeff of Majo 13.7, Plt Count 120 L, MPV 11.7, Immature Gran % (Auto) 0.400, Neut % (Auto) 82.7 H, Lymph % (Auto) 9.3 L, Mckean % (Auto) 7.2, Eos % (Auto) 0.0, Baso % (Auto) 0.4, Absolute Neuts (auto) 6.7, Absolute Lymphs (auto) 0.75 L, Nucleated RBC % 0, ESR 37 H 01/31/23 06:00: Sodium 135 L, Potassium 3.3 L, Chloride 105, Carbon Dioxide 24.0, Anion Gap 6, BUN 22 H, Creatinine 0.76, Estim Creat Clear Calc 34.30, Est GFR (MDRD) Af Amer 94, Est GFR (MDRD) Non-Af 78, BUN/Creatinine Ratio 29.0 H, Glucose 140 H, Calcium 8.6, Iron 18 L, TIBC 168 L, Iron Saturation 10.7 L, Ferritin 1596 H, Total Bilirubin 1.80 H, AST 84 H, ALT 68 H, Alkaline Phosphatase 111, C-React Prot Ext Range 164.00 H, Total Protein 5.9 L, Albumin 2.4 L, Globulin 3.5, Albumin/Globulin Ratio 0.7 L Micro: Microbiology 01/30/23 13:15 Mucosa - Nasopharyngeal Respiratory Panel (PCR) - Final 01/30/23 12:04 Stool Enteric Bacteriology - Final 01/30/23 13:40 Nasal Secretion SARS-CoV-2 Antigen (Rapid) - Final 01/28/23 17:05 Urine, Clean Catch Urine Culture - Final Mixed Gram Positive Organisms Physical Exam Narrative General: Alert, appears slightly tired HEENT: Atraumatic, normocephalic, has red appearance on cheeks, slightly better today Eyes: Anicteric, normal conjunctiva, extraocular movements intact, pupils equal Neck: Supple Respiratory: Clear to auscultation bilaterally, normal respiratory effort Cardiovascular: Sinus arrhythmia on telemetry GI: Soft, nontender, nondistended Extremities: No edema Musculoskeletal: Has some possible tenderness lower neck towards the left side Neuro: No overt focal neurological deficits Skin: Some redness on cheeks Psych: Cooperative Assessment & Plan Assessment/Plan (1) Expressive aphasia: (2) Generalized weakness: PLAN: Plan #Fever and diarrhea -Temp 100.5 earlier today which went away with Tylenol -Has some general malaise and the several episodes of diarrhea and per daughter had some stomach upset earlier -Panculture -We will give fluids -Was also becoming mildly tachycardic earlier and given elevated CRP and ESR and Pro-Tommy will start empiric antibiotics -Stool studies negative, COVID-negative but additional viral respiratory panel pending -Did have increase in bili and LFTs with normal alk phos, will obtain right upper quadrant -Patient failed observation status will be converted to inpatient given the above due to acute illness with need for IV antibiotics and acute worsening -01/30: ESR roughly the same but CRP increasing, patient still complaining of some neck pain, cultures pending. Right upper quadrant pending read. Will MRI neck and thoracic spine given does have some tenderness on palpation and seems to have infection of unclear origin with fairly high CRP. Continue antibiotics while cultures #Expressive aphasia and vertigo-TIA -On aspirin, statin -CT head no acute changes, CTA no critical stenosis -MRI no acute stroke -Official echo pending -Balance/dizziness improved this a.m. per patient, not slurring speech but she and family do not feel she is yet back to baseline, with negative MRI unclear etiology, will consult neurology -On telemetry noted sinus arrhythmia but no overt A-fib -01/30: Echo resulted with EF of 60% and bubble study negative for [id number] shunt. Did show stage I diastolic dysfunction. Spoke with neurology who evaluated, they felt it was TIA and recommended adding Plavix for 21 days and then discontinuing aspirin and continuing only Plavix as well as neuro outpatient and Holter and DC #Heart failure with preserved ejection fraction -Unable to tell if acute or chronic due to no echocardiograms in our system -Stage I diastolic dysfunction noted 01/29/2023 -Does not appear to be fluid overloaded and do not feel she needs diuretics at this time -BP and risk factor management #Mild GERD symptoms and dyslipidemia: Continue daily PPI #Mild early dementia: Patient listed is on donepazil 20 mg daily however that is over the maximum recommended dose, upon external review she is taking 10 mg, changed to 10 mg VTE prophylaxis moderate to high risk: On heparin 5000 units subcutaneous 3 times daily Charges/Coding Visit Charges Inpatient E&M: 41556 Subs Hosp L2
--- NOTE | 2023-01-31 09:25 | CASEMGMT ---
SW did not complete a PHQ 9 as patient is alert and oriented X1. Kaylee Andrade PREP PERSON VLADISLAV
[2023-01-31] MEDS: Potassium Chloride Oral Tablet 20 MEQ 60 MEQ PO (10:17)
[2023-01-31] MEDS: Clopidogrel Bisulfate 75 MG Tablet PO (10:17)
[2023-01-31] MEDS: Pantoprazole Sodium 20 MG Tablet PO (10:17)
[2023-01-31] MEDS: Donepezil HCl 10 MG Tablet PO (10:18)
[2023-01-31] MEDS: Aspirin 81 MG TAB.CHEW PO (10:18)
--- NOTE | 2023-01-31 11:55 | CASEMGMT ---
RN?CM?ANGIOGRAPHY TECHNOLOGIST?CM?to room to meet with patient and for initial transition planning/care coordination?assessment.? RN?CM?introduced self and role at [facility].? Pt in recliner chair, sleeping, and only woke up briefly during assessment. in room and the following information obtained from him. Care providers, pharmacy, and demographics verified/updated at this time. PCP: Elvis Burdick Specialists: Dr Cuevas-oil tester @ [facility], Dr Puckett-functional tester in [place] Preferred Pharmacy: [facility] Insurance: Aetna [facility] Prescription Benefit:?Yes Living Will/HPOA:? Pt has LW and HCPOA, who is her , Ronnie. LNOK: , Ronnie. Daughter, Analisa Living Arrangements: Lives w/ in 1 1/2 story home w/basement and 2 steps to enter. Pt is indep w/ADL's and IADL's. does assist w/med mgnt. Dtr lives close by and is supportive. Transportation:?Pt and both drive. DME: ?Pt does not use or have and DME. Therapy has been using a walker w/pt at times. aware but states he does not wish to get a walker for pt at this time, stating he does not think she will need one at discharge and if she does need one later that he can get one. He declines wanting a script for a WW at this time. HHC/SNF:No hx of either. Pt has done OP therapy in the past. Therapy recommends additional therapy and made aware. Discussed options for therapy. states wishes for pt to discharge home and does not want HHC or OP therapy, stating, She's not back to her normal self yet and they don't know what's going on. If she's not back to her normal self then we'll cross that bridge when we come to it. CM?to follow for any further discharge planning/needs.? voices no further concerns/needs at this time.? PLAN:??TBD by course of treatment and progress w/therapy. Follow for possible HHC or OP therapy. Follow for possible WW Anna HARTMANNN?RN?CM
[2023-01-31] MEDS: 0.9% Saline Lock 10 ML Syringe IV ×2 (14:35→21:45)
--- NOTE | 2023-01-31 15:19 | PCM.RX.CS ---
Consult Pharmacy has been consulted to manage selected antiobiotic: Vancomycin Type of Consult: New start Suspected Infection: Other Labs: Sodium 135 mmol/L (136-145) L 01/31/23 06:00 Potassium 3.3 mmol/L (3.5-5.1) L 01/31/23 06:00 Chloride 105 mmol/L (98-107) 01/31/23 06:00 Carbon Dioxide 24.0 mmol/L (21.0-32.0) 01/31/23 06:00 Anion Gap 6 (5-15) 01/31/23 06:00 BUN 22 mg/dL (7-18) H 01/31/23 06:00 Creatinine 0.76 mg/dL (0.55-1.02) 01/31/23 06:00 Est GFR (MDRD) Af Amer 94 mL/min (>60) 01/31/23 06:00 Est GFR (MDRD) Non-Af 78 mL/min (>60) 01/31/23 06:00 BUN/Creatinine Ratio 29.0 RATIO (10-20) H 01/31/23 06:00 Glucose 140 mg/dL (74-106) H 01/31/23 06:00 Microbiology: Microbiology 01/30/23 13:15 Mucosa - Nasopharyngeal Respiratory Panel (PCR) - Final 01/30/23 12:04 Stool Enteric Bacteriology - Final 01/30/23 13:40 Nasal Secretion SARS-CoV-2 Antigen (Rapid) - Final 01/28/23 17:05 Urine, Clean Catch Urine Culture - Final Mixed Gram Positive Organisms Goal Trough: 15-20 mcg/mL Pharmacy Plan for Drug Dosing: NEW START IV VANCOMYCIN Consulting Physician: Dr. Durham Indication: Empiric Goal Trough: 15-20 SrCr: 0.76 CrCl: 50 mL/min (using AdjBW) Comments: Loading dose of 1750mg IV x1 ordered and administered 01/31/23 @1428 Vancomycin Dose: 750mg IV Q12hr to start 02/01/23 @0200 Pending Level: 02/02/23 @0130, prior to 4th total dose of vancomycin per protocol Pharmacy Service will continue to monitor and adjust dosing as required.
[2023-01-31] MEDS: Metoprolol Tartrate 25 MG Tablet 12.5 MG PO (21:44)
[2023-01-31] MEDS: Atorvastatin Calcium 40 MG Tablet PO (21:45)
[2023-01-31] MEDS: Acetaminophen 325 MG Tablet 650 MG PO (21:45)
[2023-02-01 01:58] VITALS: BP 109/67; PULSE 70; RESP 16; TEMP 36.4; O2SAT 96
[2023-02-01 05:59] VITALS: BP 129/55; PULSE 62; RESP 18; TEMP 36.4; O2SAT 98
[2023-02-01] MEDS: Heparin Injection (Vial) 5,000 UNIT/ML VIAL 5000 UNIT SC (06:03)
[2023-02-01 06:07] LABS: Absolute Lymphocyte Count 1.05 X10^3/uL (0.83-4.51); Absolute Neutrophil Count 3.5 X10^3/uL (2.0-7.7); Basophil# 0.03 X10^3/uL; Basophil% 0.6 % (0-1); Eosinophils% 5.6 % (0-5); Hematocrit 38.1 % (37-47); Hemoglobin 12.3 g/dL (12.0-15.0); Lymphocyte # 1.05 X10^3/ul (0.83-4.51); Lymphocyte % 19.7 % (19-41); Mean Corp Hgb Conc 32.3 g/dL (32-36); Mean Corpuscular Hgb 26.8 pg (27.0-32.0); Mean Platelet Vol. 11.4 fl (6.2-12.0); Monocyte# 0.49 X10^3/uL; Monocyte% 9.2 % (0-10); NRBC Flagged by Analyzer 0 % (0-5); Neutrophil # 3.46 X10^3/uL (2.7-7.7); Neutrophil % 64.7 % (47-70); POSITIVE MORPHOLOGY YES; Platelet Count 126 K/mm3 (150-450); RBC Distribution Width SD 42.3 fl (35.1-43.9); Red Blood Count 4.59 M/mm3 (4.2-5.4); White Blood Count 5.3 K/mm3 (4.4-11.0)
[2023-02-01 06:14] LABS: Erythrocyte Sedimentation Rate 29 mm/hr (0-30)
[2023-02-01 06:15] LABS: Differential Indicated SCAN CRITERIA MET
[2023-02-01 06:38] LABS: ALB/GLOB Ratio 0.6 RATIO (0.9-2.4); AST(SGOT) 84 U/L (15-37); Alanine Aminotransfer ALT/SGPT 63 U/L (13-56); Albumin, Serum 2.1 g/dL (3.2-5.0); Alkaline Phosphatase 92 U/L (45-117); Anion Gap 5 (5-15); BUN 17 mg/dL (7-18); BUN/Creat Ratio 27.6 RATIO (10-20); Calcium,Total 8.3 mg/dL (8.5-10.1); Chloride 112 mmol/L (98-107); Creatinine, Serum 0.62 mg/dL (0.55-1.02); EST Glomerular Filtration Rate 98 mL/min (>60); Est Glom Filt Rate - Afr Amer 119 mL/min (>60); Globulin 3.3 g/dL (2.2-4.2); Glucose 100 mg/dL (74-106); Potassium 3.5 mmol/L (3.5-5.1); Protein, Total 5.4 g/dL (6.4-8.2); Sodium Level 141 mmol/L (136-145)
[2023-02-01 07:03] LABS: Atypical Lymphocyte 2+ %
[2023-02-01 07:08] LABS: HEPATITIS B SURFACE AG Negative (Negative); Hep C Antibodies Non Reactive (Non Reactive); Hepatitis A IgM Antibody Negative (Negative); Hepatitis B Core AB IgM Negative (Negative)
[2023-02-01] MEDS: Pantoprazole Sodium 20 MG Tablet PO (08:40)
[2023-02-01] MEDS: Donepezil HCl 10 MG Tablet PO (08:40)
[2023-02-01] MEDS: Clopidogrel Bisulfate 75 MG Tablet PO (08:40)
[2023-02-01 08:41] VITALS: BP 129/55; PULSE 62
[2023-02-01] MEDS: Metoprolol Tartrate 25 MG Tablet 12.5 MG PO (08:41)
[2023-02-01] MEDS: Aspirin 81 MG TAB.CHEW PO (08:42)
[2023-02-01] MEDS: Acetaminophen 325 MG Tablet 650 MG PO (08:42)
[2023-02-01 12:00] VITALS: BP 121/59; PULSE 72; RESP 16; TEMP 36.1; O2SAT 99
--- NOTE | 2023-02-01 13:34 | CASEMGMT ---
RN CM into pt room, pt lying in bed in no distress. Pt states she does not want a FWW to be given prior to dc but she would like a rx for it in case she needs it once home. She states she did well with therapy today and denies any need for home or out pt therapy. Green sheet on chart for FWW rx to be given to pt at dc.
--- NOTE | 2023-02-01 14:46 | DCINST_ITS ---
Discharge Instructions Diet Discharge Diet: Carb Control Diet and - (DASH diet) Activity Discharge Activity: - (Return to normal activity as tolerated) Follow Up Care Test Results: Test results from this visit will be discussed in further detail at your follow- up appointment, if applicable. Discharge Plan Admission Admit Date/Time: 01/30/23 16:09 Primary Reason for Your Visit: Difficulty with balance and speech Attending Provider: Vianey Durham Primary Care Provider: Elvis Burdick Consulting Providers: Bhaskar Prince Instructions Patient Instructions: TIA Dc Additional Instructions / Restrictions: DISCHARGE INSTRUCTIONS PLEASE READ *Please take this with you to your next doctors appointment* -Please follow-up with neurology upon discharge, please call Dr. Simeon's office upon discharge to schedule hospital follow-up appointment ( [phone]) -You will need to take Plavix and aspirin for 21 days together followed by Plavix alone -You are also started on a beta-tatianna for heart rate and blood pressure, you will take 12.5 mg of metoprolol tartrate twice daily -It will also be important that you discontinue your omeprazole and start pantoprazole in its place now that you will be on Plavix as there is an adverse reaction between omeprazole and Plavix. -You will be set up with a 30-day Holter monitor to have continuous monitoring of your heart rhythm to assess for any atrial fibrillation -You will be discharged on antibiotics, Augmentin, that you will take twice daily with first dose tonight and for 4 further days -Would recommend lab work (CBC and BMP) to check your platelets and liver function in 3 to 4 days through your primary care physician's office. Please call their office upon discharge to obtain order for lab work. You are found to have an enlarged liver on ultrasound and may benefit from following with gastroenterology upon discharge. If you would like to establish care please call the office of Dr. Sweet to schedule an appointment -Please call your primary care provider's office upon discharge to schedule a hospital follow up within 1 week. -For any concerning signs or symptoms please call 911 or proceed to the nearest emergency department Discharge Orders/Prescriptions Prescriptions: New donepezil 10 mg Tablet 10 mg PO DAILY Qty: 0 0RF clopidogrel 75 mg Tablet 75 mg PO DAILY 30 Days Qty: 30 0RF aspirin 81 mg Tablet,Chewable 81 mg PO BREAKFAST 21 Days Qty: 21 0RF metoprolol tartrate 25 mg Tablet 12.5 mg PO BID 30 Days Qty: 30 0RF amoxicillin-pot clavulanate 875-125 mg tablet 1 tab PO BID 4 Days Qty: 9 0RF pantoprazole 20 mg Tablet,Delayed Release (Dr/Ec) 20 mg PO DAILY 30 Days Qty: 30 0RF Continued atorvastatin 20 mg tablet 20 mg PO DAILY Discontinued donepezil 5 mg tablet 20 mg PO DAILY Label Comments: TAKE 1 TABLET BY MOUTH EVERY DAY IN THE EVENING omeprazole 20 mg capsule,delayed release(DR/EC) 20 mg PO DAILY Other Ambulatory Orders: 30 Day Event Recorder Preventi (Urgent) Timeframe: 1 Day Facility: [facility] - Location: Cardiovascular Services Ordered By: Dr. Vianey Durham Referrals / Follow Up: Elvis Burdick MD [Primary Care Provider] - Within 1 Week Chad Simeon MD [Non-Staff -Ordering Privileges] - See Referral Note (Please follow-up with neurology upon discharge, please call Dr. Simeon's office upon discharge to schedule hospital follow-up appointment (ph [phone])) Serg Sweet DO [Med Staff - Active Staff] - See Referral Note (You are found to have an enlarged liver on ultrasound and may benefit from following with gastroenterology upon discharge. If you would like to establish care please call the office of Dr. Sweet to schedule an appointment) Disposition Disposition (needs filled in before D/C Order can be placed): Home, Self Care
--- NOTE | 2023-02-01 14:53 | DS.PCM_ITS ---
Providers Date of Admission: 01/30/23 Date of Discharge: 02/01/23 Primary Care Physician: Dr. 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 and acute Schmorl's node versus small acute inferior endplate compression fracture at T6, few chronic thoracic compression deformities and steroid goal and thoracic spondylosis changes #Mild GERD symptoms and dyslipidemia: #Mild early dementia Medications at Discharge Home Medications atorvastatin 20 mg tablet 20 mg PO DAILY 01/28/23 amoxicillin 875 mg-potassium clavulanate 125 mg tablet 1 tab PO BID 4 days #9 tabs 02/01/23 aspirin 81 mg chewable tablet 81 mg PO BREAKFAST 21 days #21 tabs 02/01/23 clopidogrel 75 mg tablet 75 mg PO DAILY 30 days #30 tabs 02/01/23 donepezil 10 mg tablet 10 mg PO DAILY #0 tabs 02/01/23 metoprolol tartrate 25 mg tablet 12.5 mg PO BID 30 days #30 tabs 02/01/23 pantoprazole 20 mg tablet,delayed release 20 mg PO DAILY 30 days #30 tabs 02/01/23 Hospital Course Procedures - (liver US) Summary of Care Provided Minutes Spent on Discharge: 45 Hospital Course: 82-year-old female with history of TIA and mild cognitive impairment presented 01/28/2023 with expressive aphasia since the day prior. She had a TIA 2 to 3 years prior and in ED stroke call was initiated. Advised admission and full stroke work-up with no tenecteplase. Her CT and CTA were unremarkable on echo with EF of 60% and stage I diastolic dysfunction with no right to left shunt. On telemetry had sinus arrhythmia but did not identify any overt atrial fibrillation. MRI did not demonstrate any acute stroke and neurology was contacted who felt that it was a TIA and recommended adding Plavix for 21 days and discontinuing aspirin and continuing only Plavix as well as fill neuro outpatient and obtaining a 30-day event monitor and DC. She was going to be discharged after stroke work-up however she spiked a temp of 100.5 and had some generalized malaise and several episodes of diarrhea but no abdominal pain and was tolerating p.o. She had blood cultures and broad work-up and had elevated ESR and CRP and nonspecific Pro-Tommy. Empiric antibiotics were started and stool studies ordered as well as COVID and viral panels. Noted on liver function tests have elevated bili and LFTs with normal alk phos and right upper quadrant obtained which showed some hepatomegaly and hepatic steatosis. Initially she fe lt worse and CRP continued to rise and her only complaint other than several episodes of diarrhea was neck and back pain. MRI neck and thoracic spine were obtained to rule out any abscess given fairly elevated CRP. Stool studies and respiratory panel were negative. Denied any cut scrapes, rashes bleeding or bruising, did not have any abdominal pain that she had been noting, brief period where she felt nauseous but this resolved. No cough or shortness of breath, aside from neck pain and diarrhea she had no other complaints other than general malaise. She did suddenly improve on day of discharge 02/01 both clinically, vitally, and on the labs. Cultures were still no growth to date and no source of infection found, had no urinary symptoms and UA was benign, urine culture with some mixed gram-positive and gram-negative organisms with very low colony count and presumed to be contaminant. Discussed with patient that no definitive source had been found and best working diagnosis was intra-abdominal infection now that MRI had ruled out any spinal osteo or abscess. Given her significant improvement we discussed obtaining abdominal CT scan and risks and benefits of that versus risks and benefits of going home with stepdown antibiotic therapy for intra-abdominal infection. After discussing both options and risks and benefits for all options with her and family at bedside she preferred to go home on stepdown therapy, Augmentin, and follow-up closely with PCP. Also discussed her MRI of her neck and thoracic spine and recommendation for surgery and she reports she is not interested in surgery and she manages her symptoms at home with stretching and using a lacrosse ball and also goes to the chiropractor and is still very functional. Advised that if she is not interested at this time she can always be referred at a later date for evaluation by her primary care physician if she would so desire in the future and she verbalized understanding. Feeling much better on day of discharge and primary complaint was feeling somewhat tired as she was woken up several times overnight. [place] ready to go home however and would like to be discharged today which is reasonable after e xtensive discussion. Discharge instructions as followed: DISCHARGE INSTRUCTIONS PLEASE READ *Please take this with you to your next doctors appointment* -Please follow-up with neurology upon discharge, please call Dr. Simeon's office upon discharge to schedule hospital follow-up appointment ) -You will need to take Plavix and aspirin for 21 days together followed by Plavix alone -You are also started on a beta-tatianna for heart rate and blood pressure, you will take 12.5 mg of metoprolol tartrate twice daily -It will also be important that you discontinue your omeprazole and start pantoprazole in its place now that you will be on Plavix as there is an adverse reaction between omeprazole and Plavix. -You will be set up with a 30-day Holter monitor to have continuous monitoring of your heart rhythm to assess for any atrial fibrillation -You will be discharged on antibiotics, Augmentin, that you will take twice daily with first dose tonight and for 4 further days -Would recommend lab work (CBC and BMP) to check your platelets and liver function in 3 to 4 days through your primary care physician's office.? Please call their office upon discharge to obtain order for lab work. You are found to have an enlarged liver on ultrasound and may benefit from following with gastroenterology upon discharge.? If you would like to establish care please call the office of Dr. Sweet to schedule an appointment -Please call your primary care provider's office upon discharge to schedule a hospital follow up within 1 week. -For any concerning signs or symptoms please call 911 or proceed to the nearest emergency department Physical Exam Narrative General: Alert, oriented, no apparent distress HEENT: Atraumatic, normocephalic Eyes: Anicteric, normal conjunctiva, extraocular movements grossly intact Neck: Supple Respiratory: Clear to auscultation bilaterally, normal respiratory effort Cardiovascular: Regular rate and rhythm GI: Soft, nontender, nondistended Extremities: No edema Musculoskeletal: Moving all extremities Neuro: No overt focal neurological deficits Skin: No rashes appreciated Psych: Cooperative Weight / BMI Weight Weight: 72.121 kg Body Mass Index (BMI) 29.0 ABG / Lab / Microbiology Data Result Diagrams: 02/01/23 05:55 02/01/23 05:55 Laboratory: Laboratory Results - last 24 hr 01/31/23 06:00: Hepatitis A IgM Ab Negative, Hep Bs Antigen Negative, Hep B Core IgM Ab Negative, Hepatitis C Ab (EIA) Non Reactive, Hep C Ab Comment Comment 02/01/23 05:55: WBC 5.3, RBC 4.59, Hgb 12.3, Hct 38.1, MCV 83.0, MCH 26.8 L, MCHC 32.3, RDW Std Deviation 42.3, RDW Coeff of Majo 14.0, Plt Count 126 L, MPV 11.4, Immature Gran % (Auto) 0.200, Neut % (Auto) 64.7, Lymph % (Auto) 19.7, Winkler % (Auto) 9.2, Eos % (Auto) 5.6 H, Baso % (Auto) 0.6, Absolute Neuts (auto) 3.5, Absolute Lymphs (auto) 1.05, Nucleated RBC % 0, Atypical Lymphocytes 2+, ESR 29 02/01/23 05:55: Sodium 141, Potassium 3.5, Chloride 112 H, Carbon Dioxide 24.0, Anion Gap 5, BUN 17, Creatinine 0.62, Estim Creat Clear Calc 34.30, Est GFR (MDRD) Af Amer 119, Est GFR (MDRD) Non-Af 98, BUN/Creatinine Ratio 27.6 H, G lucose 100, Calcium 8.3 L, Total Bilirubin 1.00, AST 84 H, ALT 63 H, Alkaline Phosphatase 92, C-React Prot Ext Range 97.40 H, Total Protein 5.4 L, Albumin 2.1 L, Globulin 3.3, Albumin/Globulin Ratio 0.6 L 02/01/23 05:55: Ammonia 35.0 H Microbiology: Microbiology 01/30/23 15:46 Urine, Random Urine Culture - Final Mixed Gram Pos & Gram Neg Org 01/30/23 13:15 Mucosa - Nasopharyngeal Respiratory Panel (PCR) - Final 01/30/23 12:04 Stool Enteric Bacteriology - Final 01/30/23 13:40 Nasal Secretion SARS-CoV-2 Antigen (Rapid) - Final 01/28/23 17:05 Urine, Clean Catch Urine Culture - Final Mixed Gram Positive Organisms Radiography Diagnostic Testing: Radiology Impression Liver Ultrasound 01/31/23 05:00 IMPRESSION: Hepatomegaly and steatosis. Electronically Signed: Milton Tijerina MD at 17:09 EDT , Cervical Spine MRI 01/31/23 08:41 IMPRESSION: Acute Schmorl''s node versus small acute inferior endplate compression fracture at T6. Few chronic thoracic compression deformities. Cervical and thoracic spondylosis changes. Surgical evaluation recommended. Electronically Signed: Milton Tijerina MD at 21:01 EDT , Thoracic Spine MRI 01/31/23 08:41 IMPRESSION: Acute Schmorl''s node versus small acute inferior endplate compression fracture at T6. Few chronic thoracic compression deformities. Cervical and thoracic spondylosis changes. Surgical evaluation recommended. Electronically Signed: Milton Tijerina MD at 21:01 EDT , D/C Instructions Discharge Diet: Carb Control Diet and - (DASH diet) Meaningful Use Info Meaningful Use Diagnoses (Choose all that apply): None applicable Discharge Plan Admission Admit Date/Time: 01/30/23 16:09 Primary Reason for Your Visit: Difficulty with balance and speech Attending Provider: Vianey Durham Primary Care Provider: Elvis Burdick Consulting Providers: Bhaskar Prince Instructions Patient Instructions: TIA Dc Additional Instructions / Restrictions: DISCHARGE INSTRUCTIONS PLEASE READ *Please take this with you to your next doctors appointment* -Please follow-up with neurology upon discharge, please call Dr. Simeon's office upon discharge to schedule hospital follow-up appointment ) -You will need to take Plavix and aspirin for 21 days together followed by Plavi x alone -You are also started on a beta-tatianna for heart rate and blood pressure, you will take 12.5 mg of metoprolol tartrate twice daily -It will also be important that you discontinue your omeprazole and start pantoprazole in its place now that you will be on Plavix as there is an adverse reaction between omeprazole and Plavix. -You will be set up with a 30-day Holter monitor to have continuous monitoring of your heart rhythm to assess for any atrial fibrillation -You will be discharged on antibiotics, Augmentin, that you will take twice daily with first dose tonight and for 4 further days -Would recommend lab work (CBC and BMP) to check your platelets and liver function in 3 to 4 days through your primary care physician's office. Please call their office upon discharge to obtain order for lab work. You are found to have an enlarged liver on ultrasound and may benefit from fol lowing with gastroenterology upon discharge. If you would like to establish care please call the office of Dr. Sweet to schedule an appointment -Please call your primary care provider's office upon discharge to schedule a hospital follow up within 1 week. -For any concerning signs or symptoms please call 911 or proceed to the nearest emergency department Discharge Orders/Prescriptions Prescriptions: New donepezil 10 mg Tablet 10 mg PO DAILY Qty: 0 0RF clopidogrel 75 mg Tablet 75 mg PO DAILY 30 Days Qty: 30 0RF aspirin 81 mg Tablet,Chewable 81 mg PO BREAKFAST 21 Days Qty: 21 0RF metoprolol tartrate 25 mg Tablet 12.5 mg PO BID 30 Days Qty: 30 0RF amoxicillin-pot clavulanate 875-125 mg tablet 1 tab PO BID 4 Days Qty: 9 0RF pantoprazole 20 mg Tablet,Delayed Release (Dr/Ec) 20 mg PO DAILY 30 Days Qty: 30 0RF Continued atorvastatin 20 mg tablet 20 mg PO DAILY Discontinued donepezil 5 mg tablet 20 mg PO DAILY Label Comments: TAKE 1 TABLET BY MOUTH EVERY DAY IN THE EVENING omeprazole 20 mg capsule,delayed release(DR/EC) 20 mg PO DAILY Other Ambulatory Orders: 30 Day Event Recorder Preventi (Urgent) Timeframe: 1 Day Facility: [facility] - Location: Cardiovascular Services Ordered By: Dr. Vianey Durham Referrals / Follow Up: Elvis Burdick MD [Primary Care Provider] - Within 1 Week Chad Simeon MD [Non-Staff -Ordering Privileges] - See Referral Note (Please follow-up with neurology upon discharge, please call Dr. Simeon's office upon discharge to schedule hospital follow-up appointment (ph [phone])) Serg Sweet DO [Med Staff - Active Staff] - See Referral Note (You are found to have an enlarged liver on ultrasound and may benefit from following with gastroenterology upon discharge. If you would like to establish care please call the office of Dr. Sweet to schedule an appointment) Disposition Disposition (needs filled in before D/C Order can be placed): Home, Self Care Charges/Coding Visit Charges Inpatient E&M: 21055 Disch Hosp >30min
[2023-02-01 15:54] VITALS: BP 121/59; PULSE 72; RESP 16; TEMP 36; O2SAT 99
== END 2023-02-01 15:52 | disposition home or self-care (01) | DRG 864 ==
LOC: ED 18:48 → PCU 19:07
PROVIDERS: Admitting Provider Internal Medicine; Emergency Provider Emergency Medicine; PCP Family Medicine; Visit Provider Internal Medicine
DX: G45.9 Transient cerebral ischemic attack, unspecified (principal); F03.A0 Unspecified dementia, mild, without behavioral disturbance, psychotic disturbance, mood disturbance, and anxiety; I50.30 Unspecified diastolic (congestive) heart failure; R50.9 Fever, unspecified; R47.01 Aphasia; I44.7 Left bundle-branch block, unspecified; R11.0 Nausea; E78.00 Pure hypercholesterolemia, unspecified; K21.9 Gastro-esophageal reflux disease without esophagitis; M54.9 Dorsalgia, unspecified; I49.8 Other specified cardiac arrhythmias; R19.7 Diarrhea, unspecified; M43.9 Deforming dorsopathy, unspecified; R53.1 Weakness; Z20.822 Contact with and (suspected) exposure to COVID-19; Z79.899 Other long term (current) drug therapy; R29.701 NIHSS score 1; K76.0 Fatty (change of) liver, not elsewhere classified
CPT/HCPCS: 36415; 70450; 70496; 70498; 70551; 71045; 72156; 72157; 76705; 80048; 80053; 80061; 80074; 80076; 81001; 82140; 82728; 82962; 83036; 83540; 83550; 83735; 84145; 84443; 84484; 85025; 85610; 85652; 85730; 86140; 87040; 87086; 87088; 87426; 87506; 87633; 92507; 92523; 93005; 93306; 96361; 96365; 96366; 96368; 96372; 96375; 97110; 97116; 97163; 97166; 97530; 97535; 99221; 99285; A9575; J7030; J7040; J7050; Q9967; A4216; G0378